=== PATIENT | female | born 1990 ===

== ENCOUNTER 2021-11-05 14:48 | Emergency (ER) | payer MEDICAID ==
[2021-11-05 15:59] VITALS: BP 117/75
--- NOTE | 2021-11-05 16:06 | Emergency Department Report ---
ED Female HPI - General Chief complaint: Urogenital-Female Stated complaint: TESTED Time Seen by Provider: 11/05/21 16:02 Source: patient Mode of arrival: Ambulatory Limitations: No Limitations - History of Present Illness Initial comments: 31-year-old black female with no past medical history presents to the emergency department requesting testing for syphilis. Patient states that her partner told her that he tested positive for syphilis. Patient denies any symptoms at this time. MD Complaint: possible STD Severity scale (0 -10): 0 Are you Now?: No Associated Symptoms: denies: vaginal discharge, vaginal bleeding, abdominal pain, nausea/vomiting, fever/chills, headaches, loss of appetite, dysuria, hematuria, rash, seizure, shortness of breath, syncope, weakness - Related Data Sexually active: Yes ED Review of Systems ROS: Stated complaint: TESTED Other details as noted in HPI Comment: All other systems reviewed and negative Constitutional: denies: chills, fever, malaise, weakness Respiratory: denies: shortness of breath Cardiovascular: denies: chest pain, palpitations Gastrointestinal: denies: abdominal pain, nausea, vomiting Genitourinary: denies: urgency, dysuria Musculoskeletal: denies: back pain Skin: denies: rash, lesions ED Physical Exam - General Limitations: No Limitations General appearance: alert, in no apparent distress - Head Head exam: Present: atraumatic, normocephalic - Eye Eye exam: Present: normal appearance. Absent: conjunctival injection, periorbital swelling, periorbital tenderness - ENT ENT exam: Present: normal exam - Neck Neck exam: Present: normal inspection - Respiratory Respiratory exam: Absent: respiratory distress - Cardiovascular Cardiovascular Exam: Present: regular rate - GI/Abdominal GI/Abdominal exam: Absent: distended - Extremities Exam Extremities exam: Present: normal inspection - Back Exam Back exam: Present: normal inspection - Neurological Exam Neurological exam: Present: alert, oriented X3 - Psychiatric Psychiatric exam: Present: normal affect, normal mood - Skin Skin exam: Present: warm, dry, intact, normal color ED Course Vital Signs 11/05/21 15:57 Temperature 98.9 F Pulse Rate 88 Respiratory 14 Rate Blood Pressure 117/75 [Right] O2 Sat by Pulse 98 Oximetry ED Medical Decision Making - Medical Decision Making 31-year-old black female with no past medical history presents to the emergency department requesting testing for syphilis. Patient states that her partner told her that he tested positive for syphilis. Patient denies any symptoms at this time Patient without any symptoms. She was advised to follow-up with the [facility], her [employer], or [facility] for further testing. She was advised to return to the emergency department if she develops any concerning symptoms. She verbalizes understanding of and agreement with plan of care. Critical care attestation.: If time is entered above; I have spent that time in minutes in the direct care of this critically ill patient, excluding procedure time. ED Disposition Clinical Impression: Possible exposure to STD Disposition: 01 HOME / SELF CARE / HOMELESS Is pt being admited?: No Does the pt Need Aspirin: No Condition: Stable Instructions: Safe Sex, Syphilis Test Additional Instructions: Follow-up with health department, [employer], or [facility] for further testing. Return to the emergency department as needed. Referrals: [facility] [Outside] - 3-5 Days [facility] [Provider Group] - 3-5 Days DAVID GAMBLE MD [Staff Physician] - 3-5 Days Time of Disposition: 16:06
== END 2021-11-05 16:10 | disposition home or self-care (01) ==
LOC: ED 14:48
DX: Z20.2 Contact with and (suspected) exposure to infections with a predominantly sexual mode of transmission (principal)
CPT/HCPCS: 99282